=== PATIENT | female | born 1935 | race Caucasian/White ===

== ENCOUNTER 2017-02-24 02:59 | Observation (INO) | payer OTHER, BC ==
[~2017-02-24] VITALS: Ht 152.4 cm; Wt 71.3 kg
[2017-02-24 04:18] LABS: EOSINOPHIL (%) 2.8 % (0-5); EOSINOPHIL COUNT 0.2 K/uL (0-0.3); HEMATOCRIT 40.9 % (36.0-46.0); IMMATURE GRANULOCYTE (%) 0.5 % (0.0-0.7); INSTRUMENT ABS NEUTROPHIL CT 5.3 K/uL; LYMPHOCYTE COUNT 1.5 K/uL (1.0-2.8); MCH 31.5 PG (29.0-34.0); MCHC 33.7 G/DL (30.0-36.0); MCV 93.4 FL (83-99); MEAN PLAT.VOLUME 10.2 uM^3 (9.5-12.4); MONOCYTE (%) 7.4 % (3-12); MONOCYTE COUNT 0.6 K/uL (0-0.8); NEUTROPHIL (%) 69.4 % (45-76); NEUTROPHIL COUNT 5.3 K/uL (1.8-6.4); PLATELET COUNT 162 K/uL (156-360); RBC DIS.WIDTH-CV 14.1 % (11.8-14.6); RBC DIS.WIDTH-SD 48.2 % (39-53); RED BLOOD COUNT 4.38 M/uL (3.80-5.20); WHITE BLOOD COUNT 7.6 K/uL (4.1-10.2)
[2017-02-24 04:28] LABS: INTER. NORMALIZED RATIO 1.1; PROTHROMBIN TIME 11.4 (9.2-11.2); PTT 25.1 (25-32)
[2017-02-24 04:34] LABS: CHLORIDE 104 mEq/L (99-109); POTASSIUM 4.3 mEq/L (3.7-5.4); SODIUM 142 mEq/L (136-147)
[2017-02-24 04:35] LABS: GLUCOSE 105 mg/dL (70-99)
[2017-02-24 04:37] LABS: ANION GAP 15 MEQ/L (2-14)
[2017-02-24 04:39] LABS: GFR ESTIMATE (CALCULATED) 50 mL/min/
[2017-02-24 04:40] LABS: UREA NITROGEN (BUN) 22 mg/dL (9-23)
[2017-02-24 04:42] LABS: TROP-I INTERPRETATION NEGATIVE; TROPONIN-I < 0.01 ng/mL (0.0-0.30)
[2017-02-24 06:03] LABS: ADD MIUA? YES; BILIRUBIN NEGATIVE; BLOOD NEGATIVE; COLOR YELLOW ((YELLOW)); GLUCOSE (STRIP) NEGATIVE; KETONES NEGATIVE; LEUKOCYTES MODERATE; NITRITE NEGATIVE; PROTEIN (STRIP) NEGATIVE; SPECIFIC GRAVITY 1.031 (1.000-1.030); UROBILINOGEN 0.2 MG/DL (0.2-1.0)
[2017-02-24 06:17] LABS: HDL CHOLESTEROL 50 MG/DL (Desirable>=50); LDL CHOLESTEROL 60 mg/dL (Desirable<100); NON-HDL CHOLESTEROL 93 mg/dL (Desirable<160); SAMPLE HEMOLYSIS CHECK 1; SAMPLE ICTERIC CHECK 0; SAMPLE LIPEMIA CHECK 0; TOTAL CHOLESTEROL 143 mg/dL (Desirable<200); TRIGLYCERIDES 164 MG/DL (Normal: <150)
[2017-02-24 06:20] LABS: BACTERIA NONE SEEN /HPF; EPITHELIAL CELLS RARE /HPF; MUCUS NONE SEEN /LPF; RED BLOOD CELLS 0-5 /HPF (0-5); UCUL ADDED? NO; WHITE BLOOD CELLS 0-5 /HPF (0-5)
[2017-02-24] MEDS ORDERED: LISINOPRIL-HCT1 EACH PO (06:54)
[2017-02-24] MEDS ORDERED: LIPITOR10 MG PO (06:54)
[2017-02-24] MEDS ORDERED: ATORVASTATIN CA20 MG PO (06:54)
[2017-02-24] MEDS ORDERED: ASPIR 8181 M1 PO (06:55)
[2017-02-24] MEDS ORDERED: METOPROLOL TART50 MG PO (06:55)
[2017-02-24 07:36] LABS: Estimated Average Glucose 131 mg/dL (70-123); HEMOGLOBIN A1c (GLYCOHEMOGLOB) 6.2 % HGB (Below 5.7)
[2017-02-24] MEDS ORDERED: TOPROL XL50 MG PO (08:41)
[2017-02-24] MEDS ORDERED: VITAMIN D-32000 UNI2 PO (08:42)
[2017-02-24] MEDS ORDERED: PRESERVISION T1 EACH PO (08:42)
[2017-02-24 11:11] VITALS: BP 160/90
[2017-02-24 11:56] LABS: TROP-I INTERPRETATION NEGATIVE; TROPONIN-I < 0.01 ng/mL (0.0-0.30)
[2017-02-24 16:23] VITALS: BP 192/76
[2017-02-24 16:27] LABS: TROP-I INTERPRETATION NEGATIVE; TROPONIN-I < 0.01 ng/mL (0.0-0.30)
[2017-02-24 19:30] VITALS: BP 173/82
[2017-02-24 23:37] VITALS: BP 189/81
[2017-02-24 23:50] VITALS: BP 177/82
[2017-02-25 03:59] VITALS: BP 158/73
[2017-02-25 08:17] VITALS: BP 142/88
[2017-02-25 12:08] VITALS: BP 148/86
== END 2017-02-25 13:28 | disposition home or self-care (01) ==
LOC: EME 02:59 → EDOF 08:04 → 5SOUTH 08:04 → EDOF 08:04 → 5SOUTH 10:42
PROVIDERS: Emergency Medicine; Internal Medicine
DX: G45.9 Transient cerebral ischemic attack, unspecified (principal); I10 Essential (primary) hypertension; E78.5 Hyperlipidemia, unspecified
CPT/HCPCS: 70450; 70496; 70498; 70551; 71010; 80048; 80061; 81003; 83036; 84484; 85025; 85610; 85730; 93005; 93306; 93880; 99281; 99285; G0378; J1650; J7030